=== PATIENT | female | born 1995 | race American Indian/Alaskan Native ===

== ENCOUNTER 2017-11-23 16:27 | Emergency (ER) | payer MEDICAID, OTHER ==
[2017-11-23 16:32] VITALS: BP 111/64; PULSE 85; RESP 16; TEMP 98.3; O2SAT 100
--- NOTE | 2017-11-23 16:34 | ED PDOC ---
HPI: Psych/Substance Abuse Time Seen by Provider: 11/23/17 16:32 Chief Complaint (Nursing): Anxiety Chief Complaint (Provider): Anxiety History Per: Patient History/Exam Limitations: no limitations Current Symptoms Are (Timing): Still Present Additional History Per: EMS Additional Complaint(s): 22 year old female presents to the ED via EMS for evaluation after she reports feeling anxious associated with palpitations and sweaty palms prior to arrival while trying to meditate. Upon arrival, she states she only feels anxious. Of note, patient was diagnosed in the ED with anxiety after one month of on/off anxiousness, but is not on any medications and did not follow up with any psychiatrist. PMD: none provided Past Medical History Reviewed: Historical Data, Nursing Documentation, Vital Signs Vital Signs: Last Vital Signs Temp 98.3 F 11/23/17 16:30 Pulse 85 11/23/17 16:30 Resp 16 11/23/17 16:30 BP 111/64 11/23/17 16:30 Pulse Ox 100 11/23/17 16:30 - Medical History PMH: Anxiety - Surgical History Surgical History: No Surg Hx - Family History Family History: States: Unknown Family Hx - Social History Current smoker - smoking cessation education provided: No Alcohol: None Drugs: Denies - Home Medications Home Medications: Ambulatory Orders Medication Instructions Recorded ALPRAZolam [Xanax] 0.25 mg PO Q8H PRN #5 tab 11/23/17 - Allergies Allergies/Adverse Reactions: Allergies Allergy/AdvReac Type Severity Reaction Status Date / Time No Known Allergies Allergy Verified 11/23/17 16:30 Review of Systems ROS Statement: Except As Marked, All Systems Reviewed And Found Negative Constitutional: Positive for: Other (sweaty palms) Cardiovascular: Positive for: Palpitations Psych: Positive for: Anxiety Physical Exam - Reviewed Nursing Documentation Reviewed: Yes Vital Signs Reviewed: Yes - Physical Exam Appears: Positive for: No Acute Distress Head Exam: Positive for: ATRAUMATIC, NORMOCEPHALIC Skin: Positive for: Normal Color, Warm, Dry Eye Exam: Positive for: Normal appearance Cardiovascular/Chest: Positive for: Regular Rate, Rhythm. Negative for: Murmur Respiratory: Positive for: Normal Breath Sounds. Negative for: Accessory Muscle Use, Respiratory Distress Neurologic/Psych: Positive for: Alert, Oriented (x3). Negative for: Motor/ Sensory Deficits - ECG O2 Sat by Pulse Oximetry: 100 (RA) Pulse Ox Interpretation: Normal Medical Decision Making Medical Decision Making: Initial Impression: anxiety Time: 16:51 Initial Plan: --Xanax 0.25 mg PO --Urine Scribe Attestation Documented by Jory Green acting as a scribe for aFriba Hernández PA-C. Provider Attestation All medical record entries made by the Scribe were at my direction and personally dictated by me. I have reviewed the chart and agree that the record accurately reflects my personal performance of the history, physical exam, medical decision making, and the department course for this patient. I have also personally directed, reviewed, and agree with the discharge instructions and disposition. Disposition - Clinical Impression Clinical Impression: Anxiety - Patient ED Disposition Is Patient to be Admitted: No Counseled Patient/Family Regarding: Diagnosis, Need For Followup, Rx Given - Disposition Referrals: [facility] [Outside] Disposition: Routine/Home Disposition Time: 17:52 Condition: GOOD Additional Instructions: YOU HAVE AN APPOINTMENT WITH EFRA [facility] AT [facility] LOCATED AT [address] [place] [address] NOVEMBER 24, 2017 AT 11AM PLEASE ARRIVE 15 MINUTES EARLY SO TO COMPLETE PAPERWORK. Prescriptions: ALPRAZolam [Xanax] 0.25 mg PO Q8H PRN #5 tab PRN Reason: Anxiety Instructions: Anxiety, Adult (DC) Forms: [employer] (Burkinan)
== END 2017-11-23 17:58 | disposition home or self-care (01) ==
LOC: H.ER 16:27
DX: F41.9 Anxiety disorder, unspecified (principal)